=== PATIENT | female | born 1935 | race Caucasian/White ===

== ENCOUNTER 2019-10-18 22:13 | Inpatient (IN) | payer MEDICARE ==
[2019-10-18 23:07] LABS: #Basophils 0.1 thou/uL (0.0-0.2); #Eosinphils 0.1 thou/uL (0.0-0.7); #Lymphocytes 1.5 thou/uL (1.20-3.40); #Monocytes 0.5 thou/uL (0.11-0.59); #Neutrophils 3.6 thou/uL (1.40-6.50); %Basophils 1.1 % (0.0-1.0); %Eosinophils 1.8 % (0.0-10.0); %Lymphocytes 26.6 % (21.0-51.0); %Monocytes 8.4 % (0.0-10.0); Hemoglobin 12.8 g/dL (12.0-16.0); Mean Corpuscular Hemoglobin 31.2 pg (27.0-31.0); Mean Corpuscular Volume 94.5 fL (78.0-98.0); Mean Platelet Volume 7.8 fL (7.4-10.4); Platelet Count 180 thou/uL (130-400); White Blood Cell (WBC) Count 5.8 thou/uL (4.8-10.8)
--- NOTE | 2019-10-18 23:18 | RAD ---
XR Chest 1 View Portable HISTORY: Chest pain COMPARISON: None. FINDINGS: Heart size is within normal limits. There are atherosclerotic changes of the aorta. The otoniel gs show chronic change. Deformity to the right humerus is present. The bones are demineralized. IMPRESSION: Chronic lung change.
[2019-10-18 23:31] LABS: Bilirubin Negative (Negative); Blood, Urine Negative (Negative); Clarity Clear (Clear); Glucose, Urine (Dipstick) Normal (Negative); Leukocyte Negative Leu/uL (Negative); Nitrite Negative (Negative); Protein, Urine (Dipstick) 10 mg/dL (Neg-Trace)
[2019-10-18 23:36] LABS: ALT (SGPT) Less than 7 U/L (8-55); AST (SGOT) 13 U/L (5-34); Albumin 3.5 g/dL (3.4-4.8); Alkaline Phosphatase 80 U/L (40-110); Anion Gap 10 mmol/L (10-20); BUN (Urea Nitrogen) 24 mg/dL (9.8-20.1); Bilirubin, Total 0.4 mg/dL (0.2-1.2); Calc. Creatinine Clearance 0 mL/min (70-130); Calcium 8.9 mg/dL (7.8-10.44); Carbon Dioxide 31 mmol/L (23-31); Chloride 106 mmol/L (98-107); Estimated GFR-MDRD 42; Globulin 2.8 g/dL (2.4-3.5); Glucose 95 mg/dL (83-110); Potassium 4.8 mmol/L (3.5-5.1); Protein, Total 6.3 g/dL (6.0-8.3); Sodium 142 mmol/L (136-145)
--- NOTE | 2019-10-19 01:29 | PDOC.HHP ---
Hospitalist HPI - History of Present Illness History of Present Illness: chest pain at home delirium poor social support brother ekg trop neg tri social admit Hospitalist Results - Labs Result Diagrams: 10/18/19 22:59 10/18/19 22:59 Lab results: WBC 5.8 thou/uL (4.8-10.8) 10/18/19 22:59 Hgb 12.8 g/dL (12.0-16.0) 10/18/19 22:59 Hct 38.8 % (36.0-47.0) 10/18/19 22:59 MCV 94.5 fL (78.0-98.0) 10/18/19 22:59 Plt Count 180 thou/uL (130-400) 10/18/19 22:59 Neutrophils % 62.0 % (42.0-75.0) 10/18/19 22:59 Sodium 142 mmol/L (136-145) 10/18/19 22:59 Potassium 4.8 mmol/L (3.5-5.1) 10/18/19 22:59 Chloride 106 mmol/L (98-107) 10/18/19 22:59 Carbon Dioxide 31 mmol/L (23-31) 10/18/19 22:59 BUN 24 mg/dL (9.8-20.1) H 10/18/19 22:59 Creatinine 1.22 mg/dL (0.6-1.1) H 10/18/19 22:59 Glucose 95 mg/dL (83-110) 10/18/19 22:59 Calcium 8.9 mg/dL (7.8-10.44) 10/18/19 22:59 Total Bilirubin 0.4 mg/dL (0.2-1.2) 10/18/19 22:59 AST 13 U/L (5-34) 10/18/19 22:59 ALT Less than 7 U/L (8-55) L 10/18/19 22:59 Alkaline Phosphatase 80 U/L (40-110) 10/18/19 22:59 Troponin I Less than 0.010 ng/mL (< 0.028) 10/18/19 22:59 Serum Total Protein 6.3 g/dL (6.0-8.3) 10/18/19 22:59 Albumin 3.5 g/dL (3.4-4.8) 10/18/19 22:59 Urine Ketones Negative mg/dL (Negative) 10/18/19 23:17 Urine Blood Negative (Negative) 10/18/19 23:17 Urine Nitrite Negative (Negative) 10/18/19 23:17 Ur Leukocyte Esterase Negative Anders/uL (Negative) 10/18/19 23:17
[2019-10-19] MEDS ORDERED: Ondansetron PF 4 MG/2 ML Vial IVP PRN ×2 (04:28→12:41)
[2019-10-19] MEDS ORDERED: Ondansetron ODT 4 MG TAB SL PRN (04:28)
[2019-10-19] MEDS ORDERED: Lactated Ringer's 1,000 ML IV SCH (04:30)
[2019-10-19] MEDS ORDERED: Ibuprofen 200 MG TAB PO PRN (12:41)
[2019-10-19] MEDS ORDERED: Acetaminophen 500 MG TAB PO PRN (12:41)
[2019-10-19] MEDS ORDERED: hydrALAZINE 20 MG/ML VIAL SLOW IVP PRN (12:41)
[2019-10-19] MEDS ORDERED: Ondansetron ODT 4 MG TAB PO PRN (12:41)
[2019-10-19] MEDS ORDERED: Aspirin 81 mg Enteric Coated Tablet PO SCH (12:45)
[2019-10-19] MEDS: Sodium Chloride 0.9% 1,000 ML IV SCH (14:33)
--- NOTE | 2019-10-19 16:10 | ULT ---
EXAM: Carotid ultrasound HISTORY: Multiple falls and headache COMPARISON: None TECHNIQUE: Multiplanar grayscale and color Doppler images were obtained in a carotid ultrasound. Spec tral analysis of the Doppler waveforms were performed. FINDINGS: A small amount of plaque is visualized in both proximal internal carotid arteries.. No significant pl aque is seen in either common carotid artery. The Doppler waveforms are normal in the visualized vessels. Peak systolic velocity in the right internal carotid artery 71 cm/s. Peak systolic velocity in the right common carotid artery 32 cm/s. The right ICA/CCA ratio is 2.2. Peak systolic velocity in the left internal carotid artery 33 cm/s. Peak systolic velocity in the left common carotid artery 44 cm/s. The left ICA/CCA ratio is 0.8. Both vertebral arteries demonstrate antegrade flow without focal stenosis IMPRESSION: Moderate stenosis of 50-69% per the systolic to diastolic ratio in the low right internal carotid art rik.
[2019-10-19 16:45] LABS: Troponin I 0.013 ng/mL (< 0.028)
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
[2019-10-19] MEDS: Gabapentin 400 MG CAP PO SCH (20:08)
[2019-10-19] MEDS: Famotidine 20 MG TAB PO SCH (20:08)
[2019-10-19] MEDS: Carvedilol 25 MG TAB PO SCH (20:08)
[2019-10-19 20:28] LABS: Troponin I Less than 0.010 ng/mL (< 0.028)
[2019-10-19] MEDS ORDERED: FLU VACC TS2019-20(65YR UP)/PF 180 MCG/0.5 ML SYRINGE IM ONE (21:00)
[2019-10-19] MEDS ORDERED: Triamcinolone 0.025 % Cream 15GM TUBE TOP SCH (21:00)
[2019-10-19] MEDS ORDERED: Prevnar 13-Val Conj/PF 0.5 ML SYRINGE IM ONE (21:00)
[2019-10-19] MEDS: Triamcinolone 0.1% Cream 15 GM TUBE TOP SCH (21:46)
[2019-10-20] MEDS: Sodium Chloride 0.9% 1,000 ML IV SCH ×2 (03:22→15:23)
[2019-10-20] MEDS: Levothyroxine Sodium 25 MCG TAB PO SCH (06:07)
[2019-10-20] MEDS: Carvedilol 25 MG TAB PO SCH ×2 (08:04→19:54)
[2019-10-20] MEDS: Triamcinolone 0.1% Cream 15 GM TUBE TOP SCH ×2 (08:04→19:54)
[2019-10-20] MEDS: Aspirin 81 mg Enteric Coated Tablet PO SCH (08:04)
[2019-10-20] MEDS: Donepezil HCl 5 MG TAB PO SCH (09:45)
[2019-10-20] MEDS: Lorazepam 2 MG/ML VIAL SLOW IVP PRN ×2 (15:54→17:54)
--- NOTE | 2019-10-20 16:26 | PDOC.HOSPP ---
- Subjective Encounter Date: 10/20/19 Encounter Time: 16:20 Subjective: f/u for AMS, delirium, dehydration and falls. Nursing reports pt agitated and attempting to get out of bed. Ativan IV given x 1. Family at bedside. - Objective Vital Signs & Weight: Vital Signs (12 hours) Temp Pulse Resp BP Pulse Ox 10/20/19 08:00 94 L 10/20/19 07:41 97.8 F 96 18 165/96 H 94 L Weight Admit Weight 167 lb Weight 167 lb I&O: 10/19/19 10/20/19 10/21/19 06:59 06:59 06:59 Intake Total 10 1161 1705 Balance 10 1161 1705 Result Diagrams: 10/18/19 22:59 10/18/19 22:59 Additional Labs: Accuchecks 10/20/19 11:08 POC Glucose 151 H Laboratory Tests 10/18/19 10/20/19 22:59 07:43 Free T4 0.81 TSH 3rd Generation 10.8448 H Radiology Reviewed by me: Yes (Echo - EF 50-55%) Hospitalist ROS - Medication Medications: Active Medications Generic Name Dose Route Start Last Admin Trade Name Freq PRN Reason Stop Dose Admin Aspirin 81 mg 10/20/19 09:00 10/20/19 08:04 Ecotrin PO 81 mg DAILY AYANNA Administration Carvedilol 25 mg 10/19/19 21:00 10/20/19 08:04 Coreg PO 25 mg BID AYANNA Administration Donepezil HCl 5 mg 10/20/19 09:00 10/20/19 09:45 Aricept PO 5 mg DAILY AYANNA Administration Famotidine 20 mg 10/19/19 21:00 10/19/19 20:08 Pepcid PO 20 mg HS AYANNA Administration Gabapentin 400 mg 10/19/19 21:00 10/19/19 20:08 Neurontin PO 400 mg HS AYANNA Administration Sodium Chloride 1,000 mls @ 75 mls/hr 10/19/19 12:45 10/20/19 15:23 Normal Saline 0.9% IV 1,000 mls .[id number] AYANNA Administration Levothyroxine Sodium 25 mcg 10/20/19 06:00 10/20/19 06:07 Synthroid PO 25 mcg 0600 AYANNA Administration Lorazepam 1 mg 10/19/19 12:41 10/20/19 15:54 Ativan SLOW IVP 1 mg Q6H PRN Administration Anxiety/Agitation Triamcinolone Acetonide 0 gm 10/19/19 21:00 10/20/19 08:04 Kenalog 0.1% Cream TOP 1 applic BID AYANNA Administration - Exam General Appearance: awake alert Eye: PERRL, anicteric sclera ENT: normocephalic atraumatic, no oropharyngeal lesions Neck: supple, symmetric, no JVD, no thyromegaly Heart: no murmur, no gallops, no rubs, normal peripheral pulses, irregular Respiratory: CTAB, no wheezes, no rales, no ronchi, normal chest expansion Gastrointestinal: soft, non-tender, non-distended, normal bowel sounds, no palpable masses Extremities: no cyanosis, no clubbing, no edema Skin: normal turgor, no lesions Neurological: no new deficit Musculoskeletal: normal tone, normal strength Psychiatric: oriented to person Hosp A/P (1) Chest pain Code(s): R07.9 - CHEST PAIN, UNSPECIFIED Status: Acute Plan: Likely muskuloskeletal, supportive (2) Chronic atrial fibrillation Code(s): I48.20 - CHRONIC ATRIAL FIBRILLATION, UNSPECIFIED Status: Chronic Plan: Rate-controlled, no anticoagulation due to falls, Coreg 25mg BID (3) INGRIS (acute kidney injury) Code(s): N17.9 - ACUTE KIDNEY FAILURE, UNSPECIFIED Status: Acute Plan: Mild INGRIS, continue low-volume IVF's, avoid nephrotoxic meds (4) Delirium Code(s): R41.0 - DISORIENTATION, UNSPECIFIED Status: Acute Plan: Likely sundowning, Ativan IV prn, consider sitter/family for support (5) Dementia Code(s): F03.90 - UNSPECIFIED DEMENTIA WITHOUT BEHAVIORAL DISTURBANCE Status: Chronic Plan: Continue Aricept (6) Hypothyroid Code(s): E03.9 - HYPOTHYROIDISM, UNSPECIFIED Status: Chronic Plan: Continue Levothyroxine (7) Physical deconditioning Code(s): R53.81 - OTHER MALAISE Status: Chronic Plan: PT/OT for assessment, fall risk precautions - Plan plan discussed w/ family, PT/OT, social director, out of bed/ambulate, DVT proph w/SCDs Stable currently Continue Ativan 1mg IV q6h prn agitation Continue IVF's CM for SNF options Continue Coreg
[2019-10-20] MEDS: Famotidine 20 MG TAB PO SCH (19:54)
[2019-10-20] MEDS: Gabapentin 400 MG CAP PO SCH (19:54)
[2019-10-21] MEDS: Levothyroxine Sodium 25 MCG TAB PO SCH (05:41)
[2019-10-21] MEDS: Sodium Chloride 0.9% 1,000 ML IV SCH ×2 (05:41→20:39)
[2019-10-21] MEDS: Aspirin 81 mg Enteric Coated Tablet PO SCH (09:59)
[2019-10-21] MEDS: Donepezil HCl 5 MG TAB PO SCH (09:59)
[2019-10-21] MEDS: Carvedilol 25 MG TAB PO SCH ×2 (09:59→20:34)
[2019-10-21] MEDS: Triamcinolone 0.1% Cream 15 GM TUBE TOP SCH ×2 (10:00→20:38)
--- NOTE | 2019-10-21 11:54 | PDOC.HOSPP ---
- Subjective Encounter Date: 10/21/19 Encounter Time: 10:00 Subjective: patient seen on f/u for ams and chest pains, currently is oriented to person and place, denies any chest pain sob palpitation sob or diaphoresis, does refers some shoulder pain which is chronic according to daughter - Objective Vital Signs & Weight: Vital Signs (12 hours) Temp Pulse Resp BP Pulse Ox 10/21/19 08:00 98.3 F 88 16 171/91 H 97 Weight Admit Weight 167 lb Weight 167 lb I&O: 10/20/19 10/21/19 10/22/19 06:59 06:59 06:59 Intake Total 1161 1705 Balance 1161 1705 Result Diagrams: 10/18/19 22:59 10/18/19 22:59 Hospitalist ROS - Review of Systems All other systems reviewed; all pertinent +/- noted in HPI/Subj - Medication Medications: Active Medications Generic Name Dose Route Start Last Admin Trade Name Freq PRN Reason Stop Dose Admin Aspirin 81 mg 10/20/19 09:00 10/21/19 09:59 Ecotrin PO 81 mg DAILY AYANNA Administration Carvedilol 25 mg 10/19/19 21:00 10/21/19 09:59 Coreg PO 25 mg BID AYANNA Administration Donepezil HCl 5 mg 10/20/19 09:00 10/21/19 09:59 Aricept PO 5 mg DAILY AYANNA Administration Famotidine 20 mg 10/19/19 21:00 10/20/19 19:54 Pepcid PO 20 mg HS AYANNA Administration Gabapentin 400 mg 10/19/19 21:00 10/20/19 19:54 Neurontin PO 400 mg HS AYANNA Administration Sodium Chloride 1,000 mls @ 75 mls/hr 10/19/19 12:45 10/21/19 05:41 Normal Saline 0.9% IV 1,000 mls .[id number] AYANNA Administration Levothyroxine Sodium 25 mcg 10/20/19 06:00 10/21/19 05:41 Synthroid PO 25 mcg 0600 AYANNA Administration Lorazepam 1 mg 10/19/19 12:41 10/20/19 17:54 Ativan SLOW IVP 1 mg Q6H PRN Administration Anxiety/Agitation Triamcinolone Acetonide 0 gm 10/19/19 21:00 10/21/19 10:00 Kenalog 0.1% Cream TOP 1 applic BID AYANNA Administration - Exam General Appearance: NAD, awake alert Eye: PERRL, anicteric sclera ENT: normocephalic atraumatic, no oropharyngeal lesions Neck: supple, symmetric, no JVD Heart: RRR, no murmur, no gallops Respiratory: CTAB, no wheezes, no rales, no ronchi Gastrointestinal: soft, non-tender, non-distended, normal bowel sounds Extremities: no cyanosis, no clubbing Skin: normal turgor Neurological: cranial nerve grossly intact Musculoskeletal: normal tone, normal strength Psychiatric: normal affect, normal behavior, oriented to person Hosp A/P (1) Delirium Code(s): R41.0 - DISORIENTATION, UNSPECIFIED Status: Acute (2) INGRIS (acute kidney injury) Code(s): N17.9 - ACUTE KIDNEY FAILURE, UNSPECIFIED Status: Acute (3) Chest pain Code(s): R07.9 - CHEST PAIN, UNSPECIFIED Status: Acute (4) Chronic atrial fibrillation Code(s): I48.20 - CHRONIC ATRIAL FIBRILLATION, UNSPECIFIED Status: Chronic (5) Dementia Code(s): F03.90 - UNSPECIFIED DEMENTIA WITHOUT BEHAVIORAL DISTURBANCE Status: Chronic (6) Hypothyroid Code(s): E03.9 - HYPOTHYROIDISM, UNSPECIFIED Status: Chronic (7) Physical deconditioning Code(s): R53.81 - OTHER MALAISE Status: Chronic - Plan -awaiting home placement -cm consulted -continue rate control for afib -d/c ivfs -d/c ativan, daughter refers agitation gets worse, could use haldol if necessary -daughter refers patient is coughing when she eats, will consult speech for evaluation
[2019-10-21] MEDS: Gabapentin 400 MG CAP PO SCH (20:34)
[2019-10-21] MEDS: Famotidine 20 MG TAB PO SCH (20:34)
[2019-10-22] MEDS ORDERED: Lorazepam 2 MG/ML VIAL SLOW IVP PRN (04:30)
[2019-10-22] MEDS: Levothyroxine Sodium 25 MCG TAB PO SCH (05:36)
[2019-10-22] MEDS ORDERED: Haloperidol Lactate 5 MG/ML VIAL SLOW IVP PRN (08:56)
[2019-10-22] MEDS: Donepezil HCl 5 MG TAB PO SCH (09:05)
[2019-10-22] MEDS: Carvedilol 25 MG TAB PO SCH ×2 (09:05→20:08)
[2019-10-22] MEDS: Triamcinolone 0.1% Cream 15 GM TUBE TOP SCH ×2 (09:05→20:09)
[2019-10-22] MEDS: Aspirin 81 mg Enteric Coated Tablet PO SCH (09:05)
--- NOTE | 2019-10-22 14:33 | PDOC.HOSPP ---
- Subjective Encounter Date: 10/22/19 Encounter Time: 14:15 Subjective: f/u for delirium/dementia and deconditioning. Some combativeness per nursing. Trial of Haldol for agitation. - Objective Vital Signs & Weight: Vital Signs (12 hours) Temp Pulse Resp BP Pulse Ox 10/22/19 08:00 97.7 F 78 16 138/88 97 Weight Admit Weight 167 lb Weight 167 lb I&O: 10/21/19 10/22/19 10/23/19 06:59 06:59 06:59 Intake Total 1705 500 480 Output Total 650 Balance 1705 -150 480 Result Diagrams: 10/18/19 22:59 10/18/19 22:59 Additional Labs: Laboratory Tests 10/18/19 10/20/19 22:59 07:43 Free T4 0.81 TSH 3rd Generation 10.8448 H Hospitalist ROS - Medication Medications: Active Medications Generic Name Dose Route Start Last Admin Trade Name Freq PRN Reason Stop Dose Admin Aspirin 81 mg 10/20/19 09:00 10/22/19 09:05 Ecotrin PO 81 mg DAILY AYANNA Administration Carvedilol 25 mg 10/19/19 21:00 10/22/19 09:05 Coreg PO 25 mg BID AYANNA Administration Donepezil HCl 5 mg 10/20/19 09:00 10/22/19 09:05 Aricept PO 5 mg DAILY AYANNA Administration Famotidine 20 mg 10/19/19 21:00 10/21/19 20:34 Pepcid PO 20 mg HS AYANNA Administration Gabapentin 400 mg 10/19/19 21:00 10/21/19 20:34 Neurontin PO 400 mg HS AYANNA Administration Levothyroxine Sodium 25 mcg 10/20/19 06:00 10/22/19 05:36 Synthroid PO 25 mcg 0600 AYANNA Administration Triamcinolone Acetonide 0 gm 10/19/19 21:00 10/22/19 09:05 Kenalog 0.1% Cream TOP 1 applic BID AYANNA Administration - Exam General Appearance: NAD, awake alert Eye: PERRL, anicteric sclera ENT: normocephalic atraumatic, no oropharyngeal lesions Neck: supple, symmetric, no JVD, no thyromegaly Heart: no gallops, no rubs, normal peripheral pulses, irregular Respiratory: no wheezes, no ronchi Respiratory - other findings: few basilar rales Gastrointestinal: soft, non-tender, non-distended, normal bowel sounds, no palpable masses Extremities: no cyanosis, no clubbing, no edema Skin: normal turgor, no lesions Neurological: cranial nerve grossly intact, no new deficit Musculoskeletal: generalized weakness Psychiatric: oriented to person Hosp A/P (1) Chest pain Code(s): R07.9 - CHEST PAIN, UNSPECIFIED Status: Acute Plan: Resolved (2) Chronic atrial fibrillation Code(s): I48.20 - CHRONIC ATRIAL FIBRILLATION, UNSPECIFIED Status: Chronic Plan: Rate-controlled, continue Coreg (3) INGRIS (acute kidney injury) Code(s): N17.9 - ACUTE KIDNEY FAILURE, UNSPECIFIED Status: Acute Plan: Resolved (4) Delirium Code(s): R41.0 - DISORIENTATION, UNSPECIFIED Status: Acute Plan: Persistent, trial Haldol (5) Dementia Code(s): F03.90 - UNSPECIFIED DEMENTIA WITHOUT BEHAVIORAL DISTURBANCE Status: Chronic Plan: Family support, Aricept (6) Hypothyroid Code(s): E03.9 - HYPOTHYROIDISM, UNSPECIFIED Status: Chronic (7) Physical deconditioning Code(s): R53.81 - OTHER MALAISE Status: Chronic Plan: RW with PT - Plan plan discussed w/ family, PT/OT, rn social services, out of bed/ambulate, DVT proph w/SCDs Stable currently Trial Haldol 1mg IV q4h prn agitation Saline lock IVF's CM for SNF options Continue Coreg
[2019-10-22] MEDS: Gabapentin 400 MG CAP PO SCH (20:08)
[2019-10-22] MEDS: Famotidine 20 MG TAB PO SCH (20:08)
[2019-10-23] MEDS: Levothyroxine Sodium 25 MCG TAB PO SCH (05:35)
[2019-10-23] MEDS: Aspirin 81 mg Enteric Coated Tablet PO SCH (09:38)
[2019-10-23] MEDS: Triamcinolone 0.1% Cream 15 GM TUBE TOP SCH ×2 (09:38→20:26)
[2019-10-23] MEDS: Donepezil HCl 5 MG TAB PO SCH (09:38)
[2019-10-23] MEDS: Carvedilol 25 MG TAB PO SCH ×2 (09:38→20:24)
--- NOTE | 2019-10-23 14:36 | PDOC.HOSPP ---
- Subjective Encounter Date: 10/23/19 Encounter Time: 14:05 Subjective: f/u for delirium/dementia receiving low-dose Haldol. Family reports more alert, calm and eating very well. - Objective Vital Signs & Weight: Vital Signs (12 hours) Temp Pulse Resp BP Pulse Ox 10/23/19 08:00 98.3 F 87 18 143/77 H 96 Weight Admit Weight 167 lb Weight 167 lb I&O: 10/22/19 10/23/19 10/24/19 06:59 06:59 06:59 Intake Total 500 580 Output Total 650 Balance -150 580 Result Diagrams: 10/18/19 22:59 10/18/19 22:59 Additional Labs: Laboratory Tests 10/18/19 10/20/19 22:59 07:43 Free T4 0.81 TSH 3rd Generation 10.8448 H Hospitalist ROS - Medication Medications: Active Medications Generic Name Dose Route Start Last Admin Trade Name Freq PRN Reason Stop Dose Admin Aspirin 81 mg 10/20/19 09:00 10/23/19 09:38 Ecotrin PO 81 mg DAILY AYANNA Administration Carvedilol 25 mg 10/19/19 21:00 10/23/19 09:38 Coreg PO 25 mg BID AYANNA Administration Donepezil HCl 5 mg 10/20/19 09:00 10/23/19 09:38 Aricept PO 5 mg DAILY AYANNA Administration Famotidine 20 mg 10/19/19 21:00 10/22/19 20:08 Pepcid PO 20 mg HS AYANNA Administration Gabapentin 400 mg 10/19/19 21:00 10/22/19 20:08 Neurontin PO 400 mg HS AYANNA Administration Levothyroxine Sodium 25 mcg 10/20/19 06:00 10/23/19 05:35 Synthroid PO 25 mcg 0600 AYANNA Administration Triamcinolone Acetonide 0 gm 10/19/19 21:00 10/23/19 09:38 Kenalog 0.1% Cream TOP 1 applic BID AYANNA Administration - Exam General Appearance: NAD, awake alert General - other findings: smiling Eye: PERRL, anicteric sclera ENT: normocephalic atraumatic, no oropharyngeal lesions Neck: supple, symmetric, no JVD, no thyromegaly Heart: RRR, no murmur, no gallops, no rubs, normal peripheral pulses Respiratory: CTAB, no wheezes, no rales, no ronchi, normal chest expansion Gastrointestinal: soft, non-tender, non-distended, normal bowel sounds Extremities: no cyanosis, no clubbing, no edema Skin: normal turgor, no lesions Neurological: cranial nerve grossly intact, no new deficit Musculoskeletal: normal tone, generalized weakness Psychiatric: oriented to person, oriented to place Hosp A/P (1) Delirium Code(s): R41.0 - DISORIENTATION, UNSPECIFIED Status: Acute Plan: Improved, continue low-dose Haldol (2) Dementia Code(s): F03.90 - UNSPECIFIED DEMENTIA WITHOUT BEHAVIORAL DISTURBANCE Status: Chronic Plan: Continue Aricept 5mg daily (3) Chronic atrial fibrillation Code(s): I48.20 - CHRONIC ATRIAL FIBRILLATION, UNSPECIFIED Status: Chronic Plan: Rate-controlled, ASA (4) INGRIS (acute kidney injury) Code(s): N17.9 - ACUTE KIDNEY FAILURE, UNSPECIFIED Status: Acute Plan: Resolved (5) Hypothyroid Code(s): E03.9 - HYPOTHYROIDISM, UNSPECIFIED Status: Chronic Plan: Continue Levothyroxine daily (6) Physical deconditioning Code(s): R53.81 - OTHER MALAISE Status: Chronic Plan: PT/OT for mobilization - Plan plan discussed w/ family, PT/OT, social professionals, out of bed/ambulate, DVT proph w/SCDs Stable currently Trial Haldol 1mg IV q4h prn agitation Saline lock IVF's CM for SNF options Family considering returning home Continue Coreg Continue ASA daily
[2019-10-23] MEDS: Lidocaine 5% Patch TD SCH (16:54)
[2019-10-23] MEDS: Gabapentin 400 MG CAP PO SCH (20:24)
[2019-10-23] MEDS: Famotidine 20 MG TAB PO SCH (20:24)
[2019-10-24] MEDS: Lidocaine Patch Removal TOP SCH (04:30)
[2019-10-24] MEDS: Levothyroxine Sodium 25 MCG TAB PO SCH (05:34)
[2019-10-24] MEDS: Carvedilol 25 MG TAB PO SCH ×2 (09:06→20:14)
[2019-10-24] MEDS: Donepezil HCl 5 MG TAB PO SCH (09:06)
[2019-10-24] MEDS: Aspirin 81 mg Enteric Coated Tablet PO SCH (09:06)
[2019-10-24] MEDS: Triamcinolone 0.1% Cream 15 GM TUBE TOP SCH ×2 (09:07→20:13)
--- NOTE | 2019-10-24 13:49 | PDOC.HOSPP ---
- Subjective Encounter Date: 10/24/19 Encounter Time: 13:40 Subjective: f/u for dementia/delirium, deconditioning. Overall feels ok but no new events reported. - Objective Vital Signs & Weight: Vital Signs (12 hours) Temp Pulse Resp BP Pulse Ox 10/24/19 08:20 97.7 F 83 16 158/76 H 97 Weight Admit Weight 167 lb Weight 167 lb I&O: 10/23/19 10/24/19 10/25/19 06:59 06:59 06:59 Intake Total 580 930 Balance 580 930 Result Diagrams: 10/18/19 22:59 10/18/19 22:59 Additional Labs: Laboratory Tests 10/18/19 10/20/19 22:59 07:43 Free T4 0.81 TSH 3rd Generation [id number] H Hospitalist ROS - Medication Medications: Active Medications Generic Name Dose Route Start Last Admin Trade Name Freq PRN Reason Stop Dose Admin Aspirin 81 mg 10/20/19 09:00 10/24/19 09:06 Ecotrin PO 81 mg DAILY AYANNA Administration Carvedilol 25 mg 10/19/19 21:00 10/24/19 09:06 Coreg PO 25 mg BID AYANNA Administration Donepezil HCl 5 mg 10/20/19 09:00 10/24/19 09:06 Aricept PO 5 mg DAILY AYANNA Administration Famotidine 20 mg 10/19/19 21:00 10/23/19 20:24 Pepcid PO 20 mg HS AYANNA Administration Gabapentin 400 mg 10/19/19 21:00 10/23/19 20:24 Neurontin PO 400 mg HS AYANNA Administration Levothyroxine Sodium 25 mcg 10/20/19 06:00 10/24/19 05:34 Synthroid PO 25 mcg 0600 AYANNA Administration Lidocaine 2 patch 10/23/19 15:00 10/23/19 16:54 Lidoderm 5% Patch TD 2 patch 1500 AYANNA Administration Miscellaneous Medication 1 each 10/24/19 03:00 10/24/19 04:30 Lidocaine Patch Removal TOP 1 each 0300 AYANNA Administration Triamcinolone Acetonide 0 gm 10/19/19 21:00 10/24/19 09:07 Kenalog 0.1% Cream TOP 1 applic BID AYANNA Administration - Exam General Appearance: NAD, awake alert Eye: PERRL, anicteric sclera ENT: normocephalic atraumatic, no oropharyngeal lesions Neck: supple, symmetric, no JVD, no thyromegaly Heart: no murmur, no gallops, no rubs, normal peripheral pulses, irregular Respiratory: CTAB, no wheezes, no rales, no ronchi, normal chest expansion Gastrointestinal: soft, non-tender, non-distended, normal bowel sounds Extremities: no cyanosis, no clubbing, no edema Skin: normal turgor, no lesions Neurological: cranial nerve grossly intact, no new deficit Musculoskeletal: normal tone, generalized weakness Psychiatric: normal affect, oriented to person, oriented to place Hosp A/P (1) Delirium Code(s): R41.0 - DISORIENTATION, UNSPECIFIED Status: Acute Plan: Improved and resolving (2) Dementia Code(s): F03.90 - UNSPECIFIED DEMENTIA WITHOUT BEHAVIORAL DISTURBANCE Status: Chronic Plan: Continue Aricept (3) Chronic atrial fibrillation Code(s): I48.20 - CHRONIC ATRIAL FIBRILLATION, UNSPECIFIED Status: Chronic Plan: Rate-controlled, ASA (4) INGRIS (acute kidney injury) Code(s): N17.9 - ACUTE KIDNEY FAILURE, UNSPECIFIED Status: Acute (5) Hypothyroid Code(s): E03.9 - HYPOTHYROIDISM, UNSPECIFIED Status: Chronic (6) Physical deconditioning Code(s): R53.81 - OTHER MALAISE Status: Chronic - Plan plan discussed w/ family, PT/OT, geriatric social worker, out of bed/ambulate, DVT proph w/SCDs Stable currently Trial Haldol 1mg IV q4h prn agitation Saline lock IVF's CM for SNF options Family considering returning home Continue Coreg Continue ASA daily Home in am 10/25/19
[2019-10-24] MEDS: Lidocaine 5% Patch TD SCH (15:19)
[2019-10-24] MEDS: Gabapentin 400 MG CAP PO SCH (20:14)
[2019-10-24] MEDS: Famotidine 20 MG TAB PO SCH (20:14)
[2019-10-25] MEDS: Lidocaine Patch Removal TOP SCH (04:21)
[2019-10-25] MEDS: Levothyroxine Sodium 25 MCG TAB PO SCH (06:26)
[2019-10-25] MEDS: Carvedilol 25 MG TAB PO SCH ×2 (08:13→20:27)
[2019-10-25] MEDS: Aspirin 81 mg Enteric Coated Tablet PO SCH (08:14)
[2019-10-25] MEDS: Donepezil HCl 5 MG TAB PO SCH (08:50)
[2019-10-25] MEDS: Triamcinolone 0.1% Cream 15 GM TUBE TOP SCH ×2 (10:49→20:25)
[2019-10-25] MEDS: Lidocaine 5% Patch TD SCH (15:14)
[2019-10-25] MEDS: Gabapentin 400 MG CAP PO SCH (20:27)
[2019-10-25] MEDS: Famotidine 20 MG TAB PO SCH (20:27)
[2019-10-25] MEDS: Trospium 20 MG TAB PO SCH (20:28)
--- NOTE | 2019-10-25 20:52 | PDOC.HOSPP ---
- Subjective Encounter Date: 10/25/19 Encounter Time: 17:00 Subjective: f/u for dementia/delirium on current Aricept. No new events reported. Apparently family now unable to take pt home for care. - Objective Vital Signs & Weight: Vital Signs (12 hours) Temp Pulse Resp BP Pulse Ox 10/25/19 19:54 98.0 F 76 18 140/67 98 Weight Admit Weight 167 lb Weight 167 lb I&O: 10/24/19 10/25/19 10/26/19 06:59 06:59 06:59 Intake Total 930 1200 990 Balance 930 1200 990 Result Diagrams: 10/18/19 22:59 10/18/19 22:59 Additional Labs: Laboratory Tests 10/18/19 10/20/19 22:59 07:43 Free T4 0.81 TSH 3rd Generation 10.8448 H Hospitalist ROS - Medication Medications: Active Medications Generic Name Dose Route Start Last Admin Trade Name Freq PRN Reason Stop Dose Admin Aspirin 81 mg 10/20/19 09:00 10/25/19 08:14 Ecotrin PO 81 mg DAILY AYANNA Administration Carvedilol 25 mg 10/19/19 21:00 10/25/19 20:27 Coreg PO 25 mg BID AYANNA Administration Donepezil HCl 5 mg 10/20/19 09:00 10/25/19 08:50 Aricept PO 5 mg DAILY AYANNA Administration Famotidine 20 mg 10/19/19 21:00 10/25/19 20:27 Pepcid PO 20 mg HS AYANNA Administration Gabapentin 400 mg 10/19/19 21:00 10/25/19 20:27 Neurontin PO 400 mg HS AYANNA Administration Levothyroxine Sodium 25 mcg 10/20/19 06:00 10/25/19 06:26 Synthroid PO 25 mcg 0600 AYANNA Administration Lidocaine 2 patch 10/23/19 15:00 10/25/19 15:14 Lidoderm 5% Patch TD 2 patch 1500 AYANNA Administration Miscellaneous Medication 1 each 10/24/19 03:00 10/25/19 04:21 Lidocaine Patch Removal TOP 1 each 0300 AYANNA Administration Sodium Chloride 10 ml 10/25/19 09:00 10/25/19 20:28 Flush - Normal Saline IVF Not Given Q12HR AYANNA Triamcinolone Acetonide 0 gm 10/19/19 21:00 10/25/19 20:25 Kenalog 0.1% Cream TOP 1 applic BID AYANNA Administration Trospium 20 mg 10/25/19 21:00 10/25/19 20:28 Trospium PO 20 mg BID AYANNA Administration - Exam General Appearance: NAD, awake alert Eye: PERRL, anicteric sclera ENT: normocephalic atraumatic, no oropharyngeal lesions Neck: supple, symmetric, no JVD, no thyromegaly Heart: no gallops, no rubs, normal peripheral pulses, irregular Respiratory: CTAB, no wheezes, no rales, no ronchi, normal chest expansion Gastrointestinal: soft, non-tender, non-distended, normal bowel sounds Extremities: no cyanosis, no clubbing, no edema Skin: normal turgor, no lesions Neurological: cranial nerve grossly intact, no new deficit Musculoskeletal: normal tone, generalized weakness Psychiatric: oriented to person, oriented to place Hosp A/P (1) Delirium Code(s): R41.0 - DISORIENTATION, UNSPECIFIED Status: Acute Plan: Resolved, continue supportive mgmt (2) Dementia Code(s): F03.90 - UNSPECIFIED DEMENTIA WITHOUT BEHAVIORAL DISTURBANCE Status: Chronic Plan: Continue Aricept (3) Chronic atrial fibrillation Code(s): I48.20 - CHRONIC ATRIAL FIBRILLATION, UNSPECIFIED Status: Chronic Plan: ASA, Coreg (4) INGRIS (acute kidney injury) Code(s): N17.9 - ACUTE KIDNEY FAILURE, UNSPECIFIED Status: Acute Plan: Resolved (5) Hypothyroid Code(s): E03.9 - HYPOTHYROIDISM, UNSPECIFIED Status: Chronic (6) Physical deconditioning Code(s): R53.81 - OTHER MALAISE Status: Chronic Plan: PT for mobilization - Plan plan discussed w/ family, PT/OT, high school social studies teacher, out of bed/ambulate, DVT proph w/SCDs Stable currently Haldol 0.5mg po q6h prn agitation Saline lock IVF's CM for SNF options Family considering returning home but now have decided against it Continue Coreg Continue ASA/Coreg Care delay on family from 10/23/19 as patient is medically stable for discharge from that date
[2019-10-26] MEDS: Lidocaine Patch Removal TOP SCH (04:05)
[2019-10-26] MEDS: Levothyroxine Sodium 25 MCG TAB PO SCH (06:41)
[2019-10-26] MEDS: Aspirin 81 mg Enteric Coated Tablet PO SCH (08:59)
[2019-10-26] MEDS: Carvedilol 25 MG TAB PO SCH ×2 (08:59→20:31)
[2019-10-26] MEDS: Trospium 20 MG TAB PO SCH ×2 (09:00→20:31)
[2019-10-26] MEDS: Donepezil HCl 5 MG TAB PO SCH (09:00)
[2019-10-26] MEDS: Triamcinolone 0.1% Cream 15 GM TUBE TOP SCH ×2 (09:01→20:31)
[2019-10-26] MEDS: Lidocaine 5% Patch TD SCH (16:54)
--- NOTE | 2019-10-26 17:23 | PDOC.HOSPP ---
- Subjective Encounter Date: 10/26/19 Encounter Time: 16:30 Subjective: f/u for deconditioning, delirium/dementia with disposition pending. No new events reported. - Objective Vital Signs & Weight: Vital Signs (12 hours) Temp Pulse Resp BP Pulse Ox 10/26/19 08:00 97.6 F 92 16 146/84 H 96 Weight Admit Weight 167 lb Weight 167 lb I&O: 10/25/19 10/26/19 10/27/19 06:59 06:59 06:59 Intake Total 1200 990 Balance 1200 990 Result Diagrams: 10/18/19 22:59 10/18/19 22:59 Additional Labs: Laboratory Tests 10/18/19 10/20/19 22:59 07:43 Free T4 0.81 TSH 3rd Generation 10.8448 H Hospitalist ROS - Medication Medications: Active Medications Generic Name Dose Route Start Last Admin Trade Name Freq PRN Reason Stop Dose Admin Aspirin 81 mg 10/20/19 09:00 10/26/19 08:59 Ecotrin PO 81 mg DAILY AYANNA Administration Carvedilol 25 mg 10/19/19 21:00 10/26/19 08:59 Coreg PO 25 mg BID AYANNA Administration Donepezil HCl 5 mg 10/20/19 09:00 10/26/19 09:00 Aricept PO 5 mg DAILY AYANNA Administration Famotidine 20 mg 10/19/19 21:00 10/25/19 20:27 Pepcid PO 20 mg HS AYANNA Administration Gabapentin 400 mg 10/19/19 21:00 10/25/19 20:27 Neurontin PO 400 mg HS AYANNA Administration Levothyroxine Sodium 25 mcg 10/20/19 06:00 10/26/19 06:41 Synthroid PO 25 mcg 0600 AYANNA Administration Lidocaine 2 patch 10/23/19 15:00 10/26/19 16:54 Lidoderm 5% Patch TD 2 patch 1500 AYANNA Administration Miscellaneous Medication 1 each 10/24/19 03:00 10/26/19 04:05 Lidocaine Patch Removal TOP 1 each 0300 AYANNA Administration Sodium Chloride 10 ml 10/25/19 09:00 10/26/19 11:03 Flush - Normal Saline IVF Not Given Q12HR AYANNA Triamcinolone Acetonide 0 gm 10/19/19 21:00 10/26/19 09:01 Kenalog 0.1% Cream TOP 1 applic BID AYANNA Administration Trospium 20 mg 10/25/19 21:00 10/26/19 09:00 Trospium PO 20 mg BID AYANNA Administration - Exam General Appearance: NAD, awake alert Eye: PERRL, anicteric sclera ENT: normocephalic atraumatic, no oropharyngeal lesions Neck: supple, symmetric, no JVD, no thyromegaly Heart: no gallops, no rubs, normal peripheral pulses, irregular Respiratory: CTAB, no wheezes, no rales, no ronchi, normal chest expansion Gastrointestinal: soft, non-tender, non-distended, normal bowel sounds Extremities: no cyanosis, no clubbing, no edema Skin: normal turgor, no lesions Neurological: cranial nerve grossly intact, no new deficit Musculoskeletal: normal tone, generalized weakness Psychiatric: normal affect, oriented to person Hosp A/P (1) Delirium Code(s): R41.0 - DISORIENTATION, UNSPECIFIED Status: Acute Plan: Improved, continue Haldol PRN, supportive care (2) Dementia Code(s): F03.90 - UNSPECIFIED DEMENTIA WITHOUT BEHAVIORAL DISTURBANCE Status: Chronic Plan: Continue Aricept (3) Chronic atrial fibrillation Code(s): I48.20 - CHRONIC ATRIAL FIBRILLATION, UNSPECIFIED Status: Chronic Plan: Continue Coreg/ASA (4) INGRIS (acute kidney injury) Code(s): N17.9 - ACUTE KIDNEY FAILURE, UNSPECIFIED Status: Acute (5) Hypothyroid Code(s): E03.9 - HYPOTHYROIDISM, UNSPECIFIED Status: Chronic (6) Physical deconditioning Code(s): R53.81 - OTHER MALAISE Status: Chronic - Plan PT/OT, social work associate, out of bed/ambulate, DVT proph w/SCDs Stable currently Haldol 0.5mg po q6h prn agitation Saline lock IVF's CM for SNF options Family considering returning home but now have decided against it Continue Coreg Continue ASA/Coreg Care delay on family from 10/23/19 as patient is medically stable for discharge from that date
[2019-10-26] MEDS: Famotidine 20 MG TAB PO SCH (20:31)
[2019-10-26] MEDS: Gabapentin 400 MG CAP PO SCH (20:31)
[2019-10-27] MEDS: Lidocaine Patch Removal TOP SCH (04:57)
[2019-10-27] MEDS: Levothyroxine Sodium 25 MCG TAB PO SCH (05:35)
[2019-10-27] MEDS: Carvedilol 25 MG TAB PO SCH ×2 (08:56→21:16)
[2019-10-27] MEDS: Trospium 20 MG TAB PO SCH ×2 (08:57→21:16)
[2019-10-27] MEDS: Aspirin 81 mg Enteric Coated Tablet PO SCH (08:57)
[2019-10-27] MEDS: Donepezil HCl 5 MG TAB PO SCH (08:57)
[2019-10-27] MEDS: Triamcinolone 0.1% Cream 15 GM TUBE TOP SCH ×2 (09:00→21:19)
[2019-10-27 14:52] VITALS: BMI 29.5
[2019-10-27] MEDS: Lidocaine 5% Patch TD SCH (16:23)
--- NOTE | 2019-10-27 18:52 | PDOC.HOSPP ---
- Subjective Encounter Date: 10/27/19 Encounter Time: 15:00 Subjective: f/u for delirium/dementia and deconditioning with falls. No new events reported per nursing. - Objective Vital Signs & Weight: Vital Signs (12 hours) Temp Pulse Resp BP Pulse Ox 10/27/19 08:00 96 10/27/19 07:39 97.8 F 87 18 143/94 H 96 Weight Admit Weight 167 lb Weight 167 lb I&O: 10/26/19 10/27/19 10/28/19 06:59 06:59 06:59 Intake Total 990 600 Balance 990 600 Result Diagrams: 10/18/19 22:59 10/18/19 22:59 Hospitalist ROS - Medication Medications: Active Medications Generic Name Dose Route Start Last Admin Trade Name Freq PRN Reason Stop Dose Admin Aspirin 81 mg 10/20/19 09:00 10/27/19 08:57 Ecotrin PO 81 mg DAILY AYANNA Administration Carvedilol 25 mg 10/19/19 21:00 10/27/19 08:56 Coreg PO 25 mg BID AYANNA Administration Donepezil HCl 5 mg 10/20/19 09:00 10/27/19 08:57 Aricept PO 5 mg DAILY AYANNA Administration Famotidine 20 mg 10/19/19 21:00 10/26/19 20:31 Pepcid PO 20 mg HS AYANNA Administration Gabapentin 400 mg 10/19/19 21:00 10/26/19 20:31 Neurontin PO 400 mg HS AYANNA Administration Levothyroxine Sodium 25 mcg 10/20/19 06:00 10/27/19 05:35 Synthroid PO 25 mcg 0600 AYANNA Administration Lidocaine 2 patch 10/23/19 15:00 10/27/19 16:23 Lidoderm 5% Patch TD 2 patch 1500 AYANNA Administration Miscellaneous Medication 1 each 10/24/19 03:00 10/27/19 04:57 Lidocaine Patch Removal TOP Not Given 0300 AYANNA Sodium Chloride 10 ml 10/25/19 09:00 10/27/19 08:57 Flush - Normal Saline IVF 10 ml Q12HR AYANNA Administration Triamcinolone Acetonide 0 gm 10/19/19 21:00 10/27/19 09:00 Kenalog 0.1% Cream TOP 1 applic BID AYANNA Administration Trospium 20 mg 10/25/19 21:00 10/27/19 08:57 Trospium PO 20 mg BID AYANNA Administration - Exam General Appearance: NAD, awake alert Eye: PERRL, anicteric sclera ENT: normocephalic atraumatic, no oropharyngeal lesions Neck: supple, symmetric, no JVD, no thyromegaly Heart: no gallops, no rubs, normal peripheral pulses, irregular Respiratory: CTAB, no wheezes, no rales, no ronchi, normal chest expansion Gastrointestinal: soft, non-tender, non-distended, normal bowel sounds Extremities: no cyanosis, no clubbing, no edema Skin: normal turgor, no lesions Neurological: cranial nerve grossly intact, no new deficit Musculoskeletal: normal tone, generalized weakness Psychiatric: oriented to person Hosp A/P (1) Delirium Code(s): R41.0 - DISORIENTATION, UNSPECIFIED Status: Acute Plan: Improved with supportive mgmt, Haldol PRN (2) Dementia Code(s): F03.90 - UNSPECIFIED DEMENTIA WITHOUT BEHAVIORAL DISTURBANCE Status: Chronic Plan: Continue Aricept (3) Chronic atrial fibrillation Code(s): I48.20 - CHRONIC ATRIAL FIBRILLATION, UNSPECIFIED Status: Chronic Plan: Continue ASA/Coreg, no anticoagulation due to recurrent falls (4) INGRIS (acute kidney injury) Code(s): N17.9 - ACUTE KIDNEY FAILURE, UNSPECIFIED Status: Acute (5) Hypothyroid Code(s): E03.9 - HYPOTHYROIDISM, UNSPECIFIED Status: Chronic (6) Physical deconditioning Code(s): R53.81 - OTHER MALAISE Status: Chronic Plan: PT/OT for mobilization - Plan PT/OT, social worker masters, out of bed/ambulate, DVT proph w/SCDs Stable currently Haldol 0.5mg po q6h prn agitation Saline lock IVF's CM for SNF options Family considering returning home but now have decided against it Continue ASA/Coreg Care delay on family from 10/23/19 as patient is medically stable for discharge from that date but no decision on disposition
[2019-10-27] MEDS: Gabapentin 400 MG CAP PO SCH (21:16)
[2019-10-27] MEDS: Famotidine 20 MG TAB PO SCH (21:16)
[2019-10-28] MEDS: Levothyroxine Sodium 25 MCG TAB PO SCH (06:27)
[2019-10-28] MEDS: Lidocaine Patch Removal TOP SCH (06:27)
[2019-10-28] MEDS: Carvedilol 25 MG TAB PO SCH (09:03)
[2019-10-28] MEDS: Aspirin 81 mg Enteric Coated Tablet PO SCH (09:03)
[2019-10-28] MEDS: Triamcinolone 0.1% Cream 15 GM TUBE TOP SCH (09:03)
[2019-10-28] MEDS: Donepezil HCl 5 MG TAB PO SCH (09:03)
[2019-10-28] MEDS: Trospium 20 MG TAB PO SCH (09:03)
[2019-10-28 11:58] VITALS: BP 139/84; TEMP 97.7
--- NOTE | 2019-10-28 12:10 | DIS ---
DATE OF ADMISSION: 10/19/2019 DATE OF DISCHARGE: 10/28/2019 DISCHARGE DIAGNOSES: 1. Delirium multifactorial, improved. 2. Dementia, likely Alzheimer's type, stable. 3. Chronic atrial fibrillation, rate controlled. No anticoagulation due to falls. 4. Acute kidney injury, resolved. 5. Hypothyroidism, chronic, stable. 6. Physical deconditioning. CONSULTATIONS: None. PERTINENT LABORATORY AND X-RAY FINDINGS: Creatinine 1.22. Troponin I is negative x3. TSH 10.84. Free T4 of 0.81. CBC within normal limits. Portable chest x-ray dated 10/18/2019, showed chronic changes without acute infiltrate. Carotid Doppler study dated 10/19/2019, showed moderate stenosis 50% to 69% of the right internal carotid artery. 2D transthoracic echocardiogram dated 10/19/2019 showed ejection fraction 50% to 55%. Mild mitral and tricuspid regurgitation. HOSPITAL COURSE: The patient was initially admitted after presenting status post mechanical falls, memory disturbance and altered mental status. The patient underwent general evaluation, ruling out for cardiac etiology with serial cardiac biomarkers, which were negative x3. 2D transthoracic echocardiogram was performed showing overall preserved ejection fraction of 50% to 55%. The patient underwent general metabolic evaluation showing mild acute kidney injury, receiving IV fluids with complete resolution. The patient also continued on her chronic medication regimen to include Coreg 25 mg b.i.d. and aspirin. The patient with a known history of chronic atrial fibrillation with overall rate control, however, not a candidate for anticoagulation due to recurrent falls. The patient was evaluated by Physical and Occupational Therapy, ambulating with a rolling walker with standby assistance. The patient was initially evaluated for potential residential placement. However, due to functional status and insurance issues, the patient was not approved for residential care. The family has decided to pursue care at home with potential assisted living or [place] [facility] care at a later date. I have examined the patient at the time of discharge and discussed followup instructions. Overall, the patient clinically stable and ready for discharge on 10/28/2019. DISCHARGE MEDICATIONS: 1. Coreg 25 mg p.o. b.i.d. 2. Vitamin B12 of 1000 mcg IM monthly. 3. Aricept 5 mg p.o. daily. 4. Gabapentin 400 mg p.o. t.i.d. 5. Levothyroxine 25 mcg p.o. daily. 6. Enteric-coated aspirin 81 mg p.o. daily. 7. Haldol 0.5 mg p.o. q.6 hours p.r.n. agitation and delirium. 8. Detrol 1 mg p.o. b.i.d. FOLLOWUP: The patient to establish with primary care provider in the [facility] area with family assistance. CONDITION ON DISCHARGE: Stable. ACTIVITY: Ad simin, rolling walker with standby assistance and fall risk precautions. DIET: Regular. CODE STATUS: Do not attempt resuscitation. DISPOSITION: Home on 10/28/2019. TIME SPENT: Total time preparing and coordinating discharge is 36 minutes. Job ID: [id number]
[2019-10-28] MEDS: Lidocaine 5% Patch TD SCH (14:38)
--- NOTE | 2019-10-31 02:54 | PQF ---
JENNIFER GARRIDO CHARLES [id number] ONC-[id number] CLINICAL DOCUMENTATION CLARIFICATION FORM: POST DISCHARGE Addendum to original discharge summary date: ____ Late entry note date: __ DATE: 10/31/2019 ATTN: Ralph Marcial Please exercise your independent, professional judgment in responding to the clarification form. Clinical indicators are provided on the bottom of this form for your review In your clinical opinion based on clinical findingd below, can you please identify the etiolgy of Altered mental status if due to: Please check appropriate box(s): [ ] Acute kidney injury [ x ] Alzheimer's dementia [ ] Other diagnosis [ ] Unable to determine In addition, please specify: Present on Admission (POA): [ x ] Yes [ ] No [ ] Unable to determine For continuity of documentation, please document condition throughout progress notes and discharge summary. Thank You. CLINICAL INDICATORS - SIGNS / SYMPTOMS / LABS Laboratory Chemistry 10/18 BUN 24, Creatinine 1.22 H&P p1 10/19 Dr Quiñonez the daughter reports progressive memory loss, functional decline, noncompliance with chronic medication regimen and inability to care for herself H&P p1 10/19 Dr Quiñonez the pr was released from the hospital 10/10/19, following up with neurologist due to concern for memory disturbance and Alzheimer's dementia H&P p1 10/19 Dr Quiñonez Screening metabolic survey was essentially unremarkable without infectious process identified Hospitalist PN p1 10/20 Dr Quiñonez f/u for AMS, delirium, dehydration and falls. Nursing reports pt agitated and attempting to get out of bed Hospitalist PN p5 10/20 Dr Quiñonez delirium likely sundowning Discharge summary p1 10/28 Dr Quiñonez underwent general metabolic evaluation showing mild Acute kidney injury Discharge summary 10/28 Dr Quiñonez delirium multifactorial RISK FACTORS: ED Notes p1 10/18 - HTN H&P p1 10/19 83 year-old Female H&P p1 10/19 - Alzheimer's dementia H&P p1 10/19 - history of multiple falls H&P p1 10/19 - Hypothyroidism H&P p4 10/19 - Acute kidney injury TREATMENTS: NOV 19 Neurontin 40mg PO NOV 19 Lactated Ringers 1L NOV 19 1L normal saline NOV 19 IV Ativan 1mg NOV 20 Haldol 0.5 po HP p4 10/19 Avoid nephrotoxic medications Hospitalist PN p5 10/20 PT/OT assessment (This form is maintained as a part of the permanent medical record) 2014 [employer]. All Rights Reserved [email or web address]
--- NOTE | 2019-10-31 02:58 | PQF ---
JENNIFER GARRIDO RICHARD MD [id number] ONC-132 [id number] CLINICAL DOCUMENTATION CLARIFICATION FORM: POST DISCHARGE Addendum to original discharge summary date: ____ Late entry note date: __ DATE:10/31/2019 ATTN: Ralph Marcial Please exercise your independent, professional judgment in responding to the clarification form. Clinical indicators are provided on the bottom of this form for your review Please check appropriate box(s): [ ] Encephalopathy: Etiology: [ ] Hypertensive [ ] Metabolic [ ] Toxic [ ] Drug induced: [ ] Unspecified [ x ] in the setting of underlying dementia [ ] Other (please specify) [ ] Transient Alteration of Awareness [ ] Other diagnosis [ ] Unable to determine In addition, please specify: Present on Admission (POA): [ x ] Yes [ ] No [ ] Unable to determine For continuity of documentation, please document condition throughout progress notes and discharge summary. Thank You. CLINICAL INDICATORS - SIGNS / SYMPTOMS / LABS Laboratory Chemistry 10/18 BUN 24, Creatinine 1.22 H&P p1 10/19 Dr Quiñonez the daughter reports progressive memory loss, functional decline, noncompliance with chronic medication regimen and inability to care for herself H&P p1 10/19 Dr Quiñonez the pt was released from the hospital 10/10/19, following up with neurologist due to concern for memory disturbance and Alzheimer's dementia H&P p1 10/19 Dr Quiñonez Screening metabolic surgery was essentially unremarkable without infectious process identified Hospitalist PN p1 10/20 Dr Quiñonez f/u for AMS, delirium, dehydration and falls. Nursing reports pt agitated and attempting to get out of bed Hospitalist PN p5 10/20 Dr Quiñonez delirium likely sundowning Discharge summary p1 10/28 Dr Quiñonez underwent general metabolic evaluation showing mild Acute kidney injury RISK FACTORS: ED Notes p1 10/18 - HTN H&P 10/19 83 year-old Female H&P p1 10/19 - Alzheimer's dementia H&P p1 10/19 - history of multiple falls H&P p1 10/19 - Hypothyroidism H&P p4 10/19 - Acute kidney injury TREATMENTS: NOV 19 Neurontin 40mg PO NOV 19 Lactated Ringers 1L NOV 19 1L normal saline NOV 19 IV Ativan 1mg NOV 20 Haldol 0.5 po HP p4 10/19 Avoid nephrotoxic medications Hospitalist PN p5 10/20 PT/OT assessment (This form is maintained as a part of the permanent medical record) 2014 [employer]. All Rights Reserved [email or web address]
== END 2019-10-28 17:30 | disposition home or self-care (01) | DRG 57 ==
LOC: ERS 22:13 → OBSVTOIN 10-19 04:23 → ONC 10-19 04:23
PROVIDERS: ADMIT Internal Medicine; ATTEND Family Medicine
DX: G30.9 Alzheimer's disease, unspecified (principal); N17.9 Acute kidney failure, unspecified; I48.20 Chronic atrial fibrillation, unspecified; F05 Delirium due to known physiological condition; F02.81 Dementia in other diseases classified elsewhere, unspecified severity, with behavioral disturbance; Z66 Do not resuscitate; E03.9 Hypothyroidism, unspecified; I10 Essential (primary) hypertension; E86.0 Dehydration; R29.6 Repeated falls; Z79.899 Other long term (current) drug therapy; Z79.890 Hormone replacement therapy; Z88.8 Allergy status to other drugs, medicaments and biological substances; Z91.14 Patient's other noncompliance with medication regimen
CPT/HCPCS: 36415; 36416; 51701; 71045; 80053; 81003; 84439; 84443; 84484; 85025; 93005; 93306; 93880; 96360; A4353; J2060

== ENCOUNTER 2020-01-13 17:28 | Inpatient (IN) | payer MEDICARE, OTHER ==
[2020-01-13 18:15] LABS: #Eosinphils 0.1 thou/uL (0.0-0.7); #Lymphocytes 1.5 thou/uL (1.20-3.40); #Neutrophils 10.8 thou/uL (1.40-6.50); %Basophils 0.1 % (0.0-1.0); %Eosinophils 0.8 % (0.0-10.0); %Lymphocytes 11.2 % (21.0-51.0); %Monocytes 7.4 % (0.0-10.0); %Neutrophils 80.5 % (42.0-75.0); Hemoglobin 13.9 g/dL (12.0-16.0); Mean Corpuscular HGB CONC 33.4 g/dL (32.0-36.0); Mean Corpuscular Hemoglobin 31.3 pg (27.0-31.0); Mean Corpuscular Volume 93.8 fL (78.0-98.0); Mean Platelet Volume 8.9 fL (7.4-10.4); Platelet Count 183 thou/uL (130-400); RBC Distribution Width 11.9 % (11.5-14.5); Red Blood Cell (RBC) Count 4.45 mill/uL (4.20-5.40); White Blood Cell (WBC) Count 13.4 thou/uL (4.8-10.8)
[2020-01-13 18:36] LABS: ALT (SGPT) 9 U/L (8-55); AST (SGOT) 16 U/L (5-34); Albumin 3.6 g/dL (3.4-4.8); Alkaline Phosphatase 96 U/L (40-110); Anion Gap 17 mmol/L (10-20); BUN (Urea Nitrogen) 49 mg/dL (9.8-20.1); Bilirubin, Total 0.6 mg/dL (0.2-1.2); Calc. Creatinine Clearance 0 mL/min (70-130); Calcium 9.3 mg/dL (7.8-10.44); Carbon Dioxide 21 mmol/L (23-31); Chloride 105 mmol/L (98-107); Estimated GFR-MDRD 30; Globulin 3.4 g/dL (2.4-3.5); Glucose 146 mg/dL (83-110); Potassium 3.8 mmol/L (3.5-5.1); Sodium 139 mmol/L (136-145)
--- NOTE | 2020-01-13 18:50 | ULT ---
Exam: Transabdominal pelvic ultrasound HISTORY:Multiple pelvic surgeries. Pelvic bleeding. Vaginal bleeding. COMPARISON: None TECHNIQUE: Transabdominal of the pelvis is performed. FINDINGS: Limited evaluation due to bowel gas Uterus: Not identified No free fluid No obvious solid masses . IMPRESSION: Limited evaluation the pelvis. No obvious masses or fluid.
[2020-01-13 18:55] LABS: Clarity Turbid (Clear); Glucose, Urine (Dipstick) Unable to Interpret mg/dL (Negative); Leukocyte Unable to Interpret Leu/uL (Negative); Nitrite Unable to Interpret (Negative); Protein, Urine (Dipstick) Unable to Interpret mg/dL (Neg-Trace)
[2020-01-13 18:56] LABS: Bacteria/HPF 2+ HPF (None Seen); Bilirubin Unable to Interpret (Negative); Blood, Urine Unable to Interpret (Negative); RBC/HPF Greater than 50 HPF (0-3); Squamous Epithelial 0-3 HPF (0-3); Urobilinogen UNABLE TO INTERPRET mg/dL (Less than 2)
[2020-01-13] MEDS ORDERED: cefTRIAXone\\ROCEPHIN 2 GM VIAL ONE (19:11)
[2020-01-13 19:40] LABS: PTT 25.1 SEC (22.9-36.1); Prothrombin Time 13.6 SEC (12.0-14.7)
[2020-01-13] MEDS ORDERED: Acetaminophen 650 MG Suppository PR PRN (20:59)
[2020-01-13] MEDS ORDERED: Acetaminophen 325 MG TAB PO PRN (20:59)
--- NOTE | 2020-01-13 21:24 | PDOC.HHP ---
Hospitalist HPI - History of Present Illness hematuria History of Present Illness: patient has advance dementia, no family members were present at the moment of my evaluation, most of the history was taken from emr Case of an 84y/o female with pmhx of dementia, alzheimers with dementia, hypertension and hypothyroidism who was brought to hospital due to an episode of hematuria. apparently patient was on her usual state of health until today while at the prison had an episode of gross hematuria for which they called the ems and patient was brought here for evaluation. patient was evaluated at the ed with a vaginal us and physical exam, u/s wnl there was blood coming out of the urethra as per senior process engineer. patient is only oriented to person and does not understand why she is in the hospital and does not remember the hematuria Hospitalist ROS - Review of Systems ROS unobtainable: due to mental status Hospitalist History - Past Medical History Source: RN notes reviewed, prison record Cardiac: reports: HTN Endocrine: reports: Hypothyroidism - Past Surgical History Other Surgical History: unable to asses due to dementia - Family History Other Family History: unable to asses due to dementia - Social History Living Situation: Longterm Other Social History: unable to asses properly due to dementia - Exam General Appearance: NAD, awake alert Eye: PERRL, anicteric sclera ENT: normocephalic atraumatic, no oropharyngeal lesions Neck: supple, symmetric, no JVD, no thyromegaly Heart: no murmur, no gallops, no rubs, irregular Respiratory: CTAB, no wheezes, no rales Gastrointestinal: soft, non-tender, non-distended, normal bowel sounds Extremities: no cyanosis, no clubbing Skin: normal turgor, no lesions Neurological: cranial nerve grossly intact, normal sensation to touch, no weakness Musculoskeletal: normal tone, normal strength Psychiatric: normal affect, normal behavior, oriented to person Hospitalist Results - Labs Result Diagrams: 01/13/20 18:02 01/13/20 18:02 Lab results: WBC 13.4 thou/uL (4.8-10.8) H 01/13/20 18:02 Hgb 13.9 g/dL (12.0-16.0) 01/13/20 18:02 Hct 41.7 % (36.0-47.0) 01/13/20 18:02 MCV 93.8 fL (78.0-98.0) 01/13/20 18:02 Plt Count 183 thou/uL (130-400) 01/13/20 18:02 Neutrophils % 80.5 % (42.0-75.0) H 01/13/20 18:02 Sodium 139 mmol/L (136-145) 01/13/20 18:02 Potassium 3.8 mmol/L (3.5-5.1) 01/13/20 18:02 Chloride 105 mmol/L (98-107) 01/13/20 18:02 Carbon Dioxide 21 mmol/L (23-31) L 01/13/20 18:02 BUN 49 mg/dL (9.8-20.1) H 01/13/20 18:02 Creatinine 1.63 mg/dL (0.6-1.1) H 01/13/20 18:02 Glucose 146 mg/dL (83-110) H 01/13/20 18:02 Lactic Acid 1.8 mmol/L (0.5-2.2) 01/13/20 19:24 Calcium 9.3 mg/dL (7.8-10.44) 01/13/20 18:02 Total Bilirubin 0.6 mg/dL (0.2-1.2) 01/13/20 18:02 AST 16 U/L (5-34) 01/13/20 18:02 ALT 9 U/L (8-55) 01/13/20 18:02 Alkaline Phosphatase 96 U/L (40-110) 01/13/20 18:02 Serum Total Protein 7.0 g/dL (6.0-8.3) 01/13/20 18:02 Albumin 3.6 g/dL (3.4-4.8) 01/13/20 18:02 Urine Ketones Unable to Interpret mg/dL (Negative) 01/13/20 18:26 Urine Blood Unable to Interpret (Negative) 01/13/20 18:26 Urine Nitrite Unable to Interpret (Negative) 01/13/20 18:26 Ur Leukocyte Esterase Unable to Interpret Anders/uL (Negative) 01/13/20 18:26 Urine RBC Greater than 50 HPF (0-3) A 01/13/20 18:26 Urine WBC 11-20 HPF (0-3) A 01/13/20 18:26 Ur Squamous Epith Cells 0-3 HPF (0-3) 01/13/20 18:26 Urine Bacteria 2+ HPF (None Seen) A 01/13/20 18:26 - Radiology Interpretation Other Status: image reviewed by me (vaginal u/s) Additional Comment: no masses or free fluid identified Hospitalist H&P A/P - Problem (1) Hemorrhagic cystitis Code(s): N30.91 - CYSTITIS, UNSPECIFIED WITH HEMATURIA Status: Acute (2) INGRIS (acute kidney injury) Code(s): N17.9 - ACUTE KIDNEY FAILURE, UNSPECIFIED Status: Acute (3) Delirium Code(s): R41.0 - DISORIENTATION, UNSPECIFIED Status: Acute (4) Chronic atrial fibrillation Code(s): I48.20 - CHRONIC ATRIAL FIBRILLATION, UNSPECIFIED Status: Chronic (5) Dementia Code(s): F03.90 - UNSPECIFIED DEMENTIA WITHOUT BEHAVIORAL DISTURBANCE Status: Chronic (6) Hypothyroid Code(s): E03.9 - HYPOTHYROIDISM, UNSPECIFIED Status: Chronic - Plan Plan: hemorragic cystitis - likely secondary to infection, started on rocephin iv. u/ a consistent with uti, cultures were taken. vaginal u/s was wnl did not showed any abnomalities masses or fluid. will get a renal u/s. depending on findings consider uro evaluation ingris - started on ivfs, f/u renal us. f/u u/o and creatinine values hypothyroidism - continue home meds htn - continue home meds adjust as necessary a fib - chronic, persistent on rate control with betabloacker, no anticoagulation due to hx of falls, holding asa due to bleeding alz dementia - chornic, continue home meds
--- NOTE | 2020-01-14 00:02 | ULT ---
Exam: Bilateral renal ultrasound HISTORY: Acute kidney insufficiency COMPARISON: None FINDINGS: Right kidney: Normal cortical echotexture. No hydronephrosis. Right renal cortical thinning. Right kidney measurements: 4.9 x 10.1 x 4.0 cm. Left kidney: Normal cortical echotexture. No hydronephrosis. Left renal cortical thinning. Anechoic f ocus in the upper pole of the left kidney compatible with a 3.4 x 3.0 x 3.2 cm cyst. Adjacent smaller anechoic focus measures 1.5 x 1.0 x 1.3 cm and is felt to represent a cyst. 0.6 cm anechoic f ocus in the midpole the left kidney is also felt to represent a cyst. Left kidney measurements 5.2 x 4.6 x 9.2 cm. Urinary bladder: Bladder mucosal prominence measuring 1.0 cm. Bladder prominence may in part be due t o inadequate distention. Bilateral ureteral jets are identified. IMPRESSION: 1. No hydronephrosis 2. Bilateral renal cortical thinning 3. Urinary bladder mucosal prominence, nonspecific. Prominence may in part be due to inadequate bladd er distention. Bilateral ureteral jets are identified. 4. Multiple left renal cortical cysts.
[2020-01-14] MEDS: Sodium Chloride 0.9% 1,000 ML IV SCH ×3 (00:41→20:29)
[2020-01-14 04:39] LABS: ALT (SGPT) 7 U/L (8-55); AST (SGOT) 14 U/L (5-34); Albumin 3.1 g/dL (3.4-4.8); Alkaline Phosphatase 77 U/L (40-110); Anion Gap 10 mmol/L (10-20); BUN (Urea Nitrogen) 40 mg/dL (9.8-20.1); Bilirubin, Total 0.4 mg/dL (0.2-1.2); Calc. Creatinine Clearance 35 mL/min (70-130); Calcium 8.5 mg/dL (7.8-10.44); Carbon Dioxide 26 mmol/L (23-31); Chloride 108 mmol/L (98-107); Estimated GFR-MDRD 38; Globulin 2.7 g/dL (2.4-3.5); Glucose 103 mg/dL (83-110); Potassium 3.3 mmol/L (3.5-5.1); Protein, Total 5.8 g/dL (6.0-8.3); Sodium 141 mmol/L (136-145)
[2020-01-14 05:12] LABS: Band 6 % (5-11); Eosinophils 4 % (0-10); Hemoglobin 11.9 g/dL (12.0-16.0); Lymphocytes 32 % (21-51); MDiff Complete? YES; Mean Corpuscular HGB CONC 33.6 g/dL (32.0-36.0); Mean Corpuscular Hemoglobin 31.1 pg (27.0-31.0); Mean Corpuscular Volume 92.5 fL (78.0-98.0); Mean Platelet Volume 8.7 fL (7.4-10.4); Monocytes 2 % (0-10); Neutrophil 56 % (42-75); Platelet Count 163 thou/uL (130-400); RBC Distribution Width 11.6 % (11.5-14.5); Red Blood Cell (RBC) Count 3.84 mill/uL (4.20-5.40); White Blood Cell (WBC) Count 9.7 thou/uL (4.8-10.8)
[2020-01-14] MEDS: Levothyroxine Sodium 25 MCG TAB PO SCH (07:48)
[2020-01-14] MEDS: Donepezil HCl 5 MG TAB PO SCH (08:59)
[2020-01-14] MEDS ORDERED: Prevnar 13-Val Conj/PF 0.5 ML SYRINGE IM ONE (09:00)
[2020-01-14] MEDS: Carvedilol 25 MG TAB PO SCH ×2 (09:01→20:23)
--- NOTE | 2020-01-14 12:36 | PDOC.HOSPP ---
- Subjective Encounter Date: 01/14/20 Encounter Time: 09:45 Subjective: awake and calm, not oriented feels weak has not had her breakfast yet NO complaints - Objective Vital Signs & Weight: Vital Signs (12 hours) Temp Pulse Resp BP BP Pulse Ox 01/14/20 08:00 97.4 F L 90 16 120/68 120/68 98 01/14/20 04:00 98.5 F 83 18 112/68 97 Weight Weight 159 lb 6.4 oz I&O: 01/13/20 01/14/20 01/15/20 06:59 06:59 06:59 Intake Total 250 Balance 250 Result Diagrams: 01/14/20 04:09 01/14/20 04:09 Hospitalist ROS - Medication Medications: Active Medications Generic Name Dose Route Start Last Admin Trade Name Freq PRN Reason Stop Dose Admin Carvedilol 25 mg 01/14/20 09:00 01/14/20 09:01 Coreg PO 25 mg BID AYANNA Administration Donepezil HCl 5 mg 01/14/20 09:00 01/14/20 08:59 Aricept PO 5 mg DAILY AYANNA Administration Sodium Chloride 1,000 mls @ 40 mls/hr 01/13/20 21:00 01/14/20 00:41 Normal Saline 0.9% IV 1,000 mls .Q24H AYANNA Administration Levothyroxine Sodium 25 mcg 01/14/20 06:00 01/14/20 07:48 Synthroid PO Not Given 0600 AYANNA - Exam General Appearance: ill appearing Eye: PERRL, anicteric sclera ENT: no oropharyngeal lesions, dry oral mucosa Neck: supple, no JVD Heart: RRR, no murmur Respiratory: no wheezes, no rales Gastrointestinal: soft, non-tender, non-distended, normal bowel sounds Extremities: no cyanosis, no edema Neurological: cranial nerve grossly intact, no focal deficits Hosp A/P (1) Hemorrhagic cystitis Code(s): N30.91 - CYSTITIS, UNSPECIFIED WITH HEMATURIA Status: Acute (2) INGRIS (acute kidney injury) Code(s): N17.9 - ACUTE KIDNEY FAILURE, UNSPECIFIED Status: Acute (3) Delirium Code(s): R41.0 - DISORIENTATION, UNSPECIFIED Status: Acute (4) Chronic atrial fibrillation Code(s): I48.20 - CHRONIC ATRIAL FIBRILLATION, UNSPECIFIED Status: Chronic (5) Dementia Code(s): F03.90 - UNSPECIFIED DEMENTIA WITHOUT BEHAVIORAL DISTURBANCE Status: Chronic Qualifiers: Dementia type: Alzheimer's disease (6) Hypothyroid Code(s): E03.9 - HYPOTHYROIDISM, UNSPECIFIED Status: Chronic Qualifiers: Hypothyroidism type: unspecified Qualified Code(s): E03.9 - Hypothyroidism , unspecified (7) Physical deconditioning Code(s): R53.81 - OTHER MALAISE Status: Chronic - Plan is on ceftriaxone, coreg, donepezil, synthroid and home dose of haldol afib is rate controlled may tx to med floor hemostable encourage po intake, gentle iv hydration until then oob to chair as tolerated, PT/OT eval no gross hematuria now
[2020-01-14] MEDS: cefTRIAXone\\ROCEPHIN 2 GM in Sodium Chloride 0.9% 100 ML IVPB SCH (20:23)
[2020-01-14] MEDS: Oxybutynin 5 MG TAB PO SCH (20:23)
[2020-01-14] MEDS: Haloperidol 1 MG TAB PO SCH (20:23)
[2020-01-15] MEDS: Levothyroxine Sodium 25 MCG TAB PO SCH (05:24)
[2020-01-15] MEDS: Donepezil HCl 5 MG TAB PO SCH (09:08)
[2020-01-15] MEDS: Oxybutynin 5 MG TAB PO SCH ×2 (09:08→20:32)
[2020-01-15] MEDS: Carvedilol 25 MG TAB PO SCH ×2 (09:14→20:32)
--- NOTE | 2020-01-15 10:40 | PDOC.HOSPP ---
- Subjective Encounter Date: 01/15/20 Encounter Time: 08:15 Subjective: awake, no sob or abd pain feels better - Objective Vital Signs & Weight: Vital Signs (12 hours) Temp Pulse Resp BP Pulse Ox 01/15/20 06:59 97.6 F 80 17 118/78 97 Weight Admit Weight 159 lb 6.4 oz Weight 158 lb 4.67 oz I&O: 01/14/20 01/15/20 01/16/20 06:59 06:59 06:59 Intake Total 250 840 Output Total 200 Balance 250 640 Result Diagrams: 01/14/20 04:09 01/14/20 04:09 Hospitalist ROS - Medication Medications: Active Medications Generic Name Dose Route Start Last Admin Trade Name Freq PRN Reason Stop Dose Admin Carvedilol 25 mg 01/14/20 09:00 01/15/20 09:14 Coreg PO Not Given BID AYANNA Donepezil HCl 5 mg 01/14/20 09:00 01/15/20 09:08 Aricept PO 5 mg DAILY AYANNA Administration Haloperidol 1 mg 01/14/20 21:00 01/14/20 20:23 Haldol PO 1 mg BID AYANNA Administration Sodium Chloride 1,000 mls @ 40 mls/hr 01/13/20 21:00 01/14/20 20:29 Normal Saline 0.9% IV Not Given .Q24H AYANNA Ceftriaxone Sodium 2 gm/ 100 mls @ 200 mls/hr 01/14/20 20:00 01/14/20 20:23 Sodium Chloride IVPB 100 mls 2000 AYANNA Administration Levothyroxine Sodium 25 mcg 01/14/20 06:00 01/15/20 05:24 Synthroid PO 25 mcg 0600 AYANNA Administration Oxybutynin Chloride 5 mg 01/14/20 21:00 01/15/20 09:08 Ditropan PO 5 mg BID AYANNA Administration Pantoprazole Sodium 40 mg 01/14/20 21:00 01/15/20 09:15 Protonix PO Not Given BID AYANNA - Exam General Appearance: awake alert Eye: PERRL, anicteric sclera ENT: no oropharyngeal lesions, dry oral mucosa Neck: supple, no JVD Heart: RRR, no gallops, murmur present Respiratory: no wheezes, no rales, rhonchi Gastrointestinal: soft, non-tender, non-distended, normal bowel sounds Extremities: no cyanosis, no edema Neurological: cranial nerve grossly intact, no focal deficits Hosp A/P (1) Hemorrhagic cystitis Code(s): N30.91 - CYSTITIS, UNSPECIFIED WITH HEMATURIA Status: Acute (2) INGRIS (acute kidney injury) Code(s): N17.9 - ACUTE KIDNEY FAILURE, UNSPECIFIED Status: Acute (3) Delirium Code(s): R41.0 - DISORIENTATION, UNSPECIFIED Status: Acute (4) Chronic atrial fibrillation Code(s): I48.20 - CHRONIC ATRIAL FIBRILLATION, UNSPECIFIED Status: Chronic (5) Dementia Code(s): F03.90 - UNSPECIFIED DEMENTIA WITHOUT BEHAVIORAL DISTURBANCE Status: Chronic Qualifiers: Dementia type: Alzheimer's disease (6) Hypothyroid Code(s): E03.9 - HYPOTHYROIDISM, UNSPECIFIED Status: Chronic Qualifiers: Hypothyroidism type: unspecified Qualified Code(s): E03.9 - Hypothyroidism , unspecified (7) Physical deconditioning Code(s): R53.81 - OTHER MALAISE Status: Chronic - Plan is on ceftriaxone, coreg, donepezil, synthroid and home dose of haldol afib is rate controlled urine culture is growing mixed precious, will switch her to cipro in am hemostable encourage po intake, gentle iv hydration until then oob to chair as tolerated, PT/OT eval no gross hematuria now
[2020-01-15] MEDS: Haloperidol 1 MG TAB PO SCH ×2 (12:07→20:32)
[2020-01-15] MEDS ORDERED: Labetalol HCl 100 MG/20 ML VIAL ONE (12:45)
[2020-01-15] MEDS: Sodium Chloride 0.9% 1,000 ML IV SCH ×2 (14:07→20:43)
[2020-01-15] MEDS: cefTRIAXone\\ROCEPHIN 2 GM in Sodium Chloride 0.9% 100 ML IVPB SCH (20:34)
[2020-01-16] MEDS: Levothyroxine Sodium 25 MCG TAB PO SCH (05:29)
[2020-01-16 05:46] LABS: #Eosinphils 0.2 thou/uL (0.0-0.7); #Lymphocytes 1.9 thou/uL (1.20-3.40); #Monocytes 0.6 thou/uL (0.11-0.59); #Neutrophils 5.2 thou/uL (1.40-6.50); %Basophils 0.4 % (0.0-1.0); %Eosinophils 2.1 % (0.0-10.0); %Lymphocytes 24.3 % (21.0-51.0); %Monocytes 7.8 % (0.0-10.0); %Neutrophils 65.3 % (42.0-75.0); Hemoglobin 11.9 g/dL (12.0-16.0); Mean Corpuscular HGB CONC 33.1 g/dL (32.0-36.0); Mean Corpuscular Hemoglobin 30.9 pg (27.0-31.0); Mean Corpuscular Volume 93.2 fL (78.0-98.0); Mean Platelet Volume 8.9 fL (7.4-10.4); Platelet Count 157 thou/uL (130-400); RBC Distribution Width 11.8 % (11.5-14.5); Red Blood Cell (RBC) Count 3.85 mill/uL (4.20-5.40); White Blood Cell (WBC) Count 7.9 thou/uL (4.8-10.8)
[2020-01-16 05:58] LABS: Anion Gap 12 mmol/L (10-20); BUN (Urea Nitrogen) 22 mg/dL (9.8-20.1); Calc. Creatinine Clearance 54 mL/min (70-130); Carbon Dioxide 22 mmol/L (23-31); Chloride 111 mmol/L (98-107); Estimated GFR-MDRD 63; Glucose 107 mg/dL (83-110); Potassium 3.6 mmol/L (3.5-5.1); Sodium 141 mmol/L (136-145)
[2020-01-16] MEDS: Donepezil HCl 5 MG TAB PO SCH (09:49)
[2020-01-16] MEDS: Haloperidol 1 MG TAB PO SCH ×2 (09:49→20:25)
[2020-01-16] MEDS: Carvedilol 25 MG TAB PO SCH ×2 (09:49→20:25)
[2020-01-16] MEDS: Oxybutynin 5 MG TAB PO SCH ×2 (09:50→20:25)
--- NOTE | 2020-01-16 10:21 | PDOC.HOSPP ---
- Subjective Encounter Date: 01/16/20 Encounter Time: 08:45 Subjective: is more awake and interacting today no sob - Objective Vital Signs & Weight: Vital Signs (12 hours) Temp Pulse Resp BP Pulse Ox 01/16/20 07:44 97.5 F L 95 20 137/94 H 94 L Weight Admit Weight 159 lb 6.4 oz Weight 158 lb 4.67 oz I&O: 01/15/20 01/16/20 01/17/20 06:59 06:59 06:59 Intake Total 840 1817 Output Total 200 950 Balance 640 867 Result Diagrams: 01/16/20 05:17 01/16/20 05:17 Hospitalist ROS - Medication Medications: Active Medications Generic Name Dose Route Start Last Admin Trade Name Freq PRN Reason Stop Dose Admin Carvedilol 25 mg 01/14/20 09:00 01/16/20 09:49 Coreg PO 25 mg BID AYANNA Administration Donepezil HCl 5 mg 01/14/20 09:00 01/16/20 09:49 Aricept PO 5 mg DAILY AYANNA Administration Haloperidol 1 mg 01/14/20 21:00 01/16/20 09:49 Haldol PO 1 mg BID AYANNA Administration Sodium Chloride 1,000 mls @ 40 mls/hr 01/13/20 21:00 01/15/20 20:43 Normal Saline 0.9% IV Not Given .Q24H AYANNA Levothyroxine Sodium 25 mcg 01/14/20 06:00 01/16/20 05:29 Synthroid PO Not Given 0600 AYANNA Oxybutynin Chloride 5 mg 01/14/20 21:00 01/16/20 09:50 Ditropan PO 5 mg BID AYANNA Administration Pantoprazole Sodium 40 mg 01/14/20 21:00 01/16/20 09:50 Protonix PO 40 mg BID AYANNA Administration Sodium Chloride 10 ml 01/16/20 09:00 01/16/20 09:51 Flush - Normal Saline IVF Not Given Q12HR AYANNA - Exam General Appearance: awake alert Eye: PERRL, anicteric sclera ENT: no oropharyngeal lesions, moist mucosa Neck: supple, no JVD Heart: RRR, no murmur Respiratory: no wheezes, no rales Gastrointestinal: soft, non-tender, non-distended, normal bowel sounds Extremities: no cyanosis, no edema Neurological: cranial nerve grossly intact, no focal deficits Hosp A/P (1) Hemorrhagic cystitis Code(s): N30.91 - CYSTITIS, UNSPECIFIED WITH HEMATURIA Status: Acute (2) INGRIS (acute kidney injury) Code(s): N17.9 - ACUTE KIDNEY FAILURE, UNSPECIFIED Status: Acute (3) Delirium Code(s): R41.0 - DISORIENTATION, UNSPECIFIED Status: Acute (4) Chronic atrial fibrillation Code(s): I48.20 - CHRONIC ATRIAL FIBRILLATION, UNSPECIFIED Status: Chronic (5) Dementia Code(s): F03.90 - UNSPECIFIED DEMENTIA WITHOUT BEHAVIORAL DISTURBANCE Status: Chronic Qualifiers: Dementia type: Alzheimer's disease (6) Hypothyroid Code(s): E03.9 - HYPOTHYROIDISM, UNSPECIFIED Status: Chronic Qualifiers: Hypothyroidism type: unspecified Qualified Code(s): E03.9 - Hypothyroidism , unspecified (7) Physical deconditioning Code(s): R53.81 - OTHER MALAISE Status: Chronic - Plan is on cipro, coreg, donepezil, synthroid and home dose of haldol afib is rate controlled urine culture grew p.mirabilis hemostable encourage po intake, gentle iv hydration until then oob to chair as tolerated, PT/OT eval no gross hematuria now dc plan when she is ambulating and eating well
[2020-01-16] MEDS: Sodium Chloride 0.9% 1,000 ML IV SCH (17:40)
[2020-01-16] MEDS: Ciprofloxacin 500 MG TAB PO SCH (20:25)
[2020-01-17] MEDS: Ciprofloxacin 500 MG TAB PO SCH (06:22)
[2020-01-17] MEDS: Levothyroxine Sodium 25 MCG TAB PO SCH (06:22)
[2020-01-17] MEDS: Donepezil HCl 5 MG TAB PO SCH (08:19)
[2020-01-17] MEDS: Haloperidol 1 MG TAB PO SCH (08:19)
[2020-01-17] MEDS: Carvedilol 25 MG TAB PO SCH (08:19)
[2020-01-17] MEDS: Oxybutynin 5 MG TAB PO SCH (08:19)
[2020-01-17 12:43] VITALS: BMI 28.0
[2020-01-17 17:08] VITALS: BP 121/85; TEMP 98.3
--- NOTE | 2020-01-18 05:36 | DIS ---
DATE OF ADMISSION: 01/13/2020 DATE OF DISCHARGE: 01/17/2020 DISCHARGE DISPOSITION: Home with home health. PRIMARY DISCHARGE DIAGNOSES: Hematuria with cystitis, likely hemorrhagic cystitis, acute kidney injury stable, acute metabolic encephalopathy due to urinary tract infection resolving, baseline dementia, atrial fibrillation, which is rate controlled, hypothyroidism. PROCEDURES DONE DURING HOSPITALIZATION: Pelvic ultrasound done on the day of admission showed no obvious mass or fluid. Urine culture grew Proteus mirabilis and alpha hemolytic strep, both sensitive to all antibiotics except Macrobid. Had a white count of 13 on admission, discharge number of 7.9, H and H 12 and 36, platelet count 157. Discharge BUN and creatinine were 22 and 0.8. Admitting BUN and creatinine were 49 and 1.6. DISCHARGE MEDICATIONS: The patient is to continue: 1. Ciprofloxacin 500 mg p.o. twice daily for another 6 days. 2. Protonix 40 mg twice daily. 3. Oxybutynin 5 mg p.o. twice daily. 4. Synthroid 25 mcg p.o. daily. 5. Hydrochlorothiazide 12.5 mg p.o. daily. 6. Haldol 1 mg p.o. twice daily. 7. Aricept 5 mg p.o. daily. 8. Coreg 25 mg twice daily. ALLERGIES: TO CODEINE AND LORAZEPAM. DISCHARGE PLAN: The patient to follow up with primary care physician in 1 week. BRIEF COURSE DURING HOSPITALIZATION: The patient initially got admitted on the due to zoë hematuria. The patient was also confused. She had atrial fibrillation with RVR and was on Cardizem drip and admitted to [facility] initially. The patient has had pancultures drawn and was placed on broad-spectrum IV antibiotics. The pelvic ultrasound done did not reveal any obvious source of mass or swelling. The patient's acute metabolic encephalopathy is slowly resolving. In addition to the above, the patient has underlying dementia and is 84 years old. She has been able to stand with minimal assist. Placement was suggested including either inpatient rehab or swing bed, but the patient's daughter, Ms. Schrader does not want her going any place. She and her are well prepared to take care of her at home. She has had a renal ultrasound done as well during her stay, which showed no hydronephrosis. There was bilateral renal cortical thinning and bladder mucosal prominence was seen. There are multiple left renal cortical cysts were noted as well. Prior to discharge, she is eating and likely is at her baseline cognitive status. Please note, I have seen and examined the patient on the day of discharge. Prior to discharge, I have given complete updates to her daughter, Ms. Schrader. Job ID: [id number]
--- NOTE | 2020-01-18 09:00 | PQF ---
JENNIFER GARRIDO VINAYA KUMAR MD [id number] CLINICAL DOCUMENTATION CLARIFICATION FORM: POST DISCHARGE Addendum to original discharge summary date: ____ Late entry note date: __ DATE: 01/18/2020 ATTN: Ousmane Hunter Please exercise your independent, professional judgment in responding to the clarification form. Clinical indicators are provided on the bottom of this form for your review Please check appropriate box(es): [ x ] Sepsis due to UTI [ ] Severe sepsis with acute organ dysfunction of: (Examples: respiratory failure, encephalopathy, acute kidney failure, other) [ ] Septic Shock [ ] Localized infection without sepsis [ ] Other diagnosis [ ] Unable to determine In addition, please specify: Present on Admission (POA): [ x ] Yes [ ] No [ ] Unable to determine For continuity of documentation, please document condition throughout progress notes and discharge summary. Thank You. CLINICAL INDICATORS - SIGNS / SYMPTOMS / LABS Laboratory 01/12 WBC 13.4, Plt caound 183, Neutrophils 80.5, Lactic acid 1.8 Vital signs 01/12 BP139/93, Pulse 110, Resp 18, Temp 98.1 Urine Culture 01/12 Positive with Proteus Mirabilis, Aerococcus viridans H&P p1 01/12 Kings Pt is only oriented to person and does not understand why she is in the hospital and does not remember the hematuria H&P p1 01/12 Kings Unable to asses due to dementia H&P p3 01/12 Delirium H&P p3 01/12 INGRIS H&P p3 01/12 Hemorrhagic cystitis RISK FACTORS H&P p1 01/12 84 year-old Female H&P p1 01/12 Alzheimer with dementia H&P p1 01/12 HTN H&P p1 01/12 Afib H&P p1 01/12 hypothyroidism H&P p3 01/12 Hemorrhagic cystitis TREATMENTS: NOV 22 IVF NS 1L NOV 22 IV Ceftriaxone 2gm NOV 22 Cipro 500mg oral Urine culture 01/12 (This form is maintained as a part of the permanent medical record) 2014 [email or web address], [email or web address]. All Rights Reserved [email or web address]
== END 2020-01-17 17:09 | disposition home health service (06) | DRG 871 ==
LOC: ERS 17:28 → OBSVTOIN 20:44 → 2NO 20:44 → T4-A 01-14 14:05
PROVIDERS: ADMIT Internal Medicine; ATTEND Internal Medicine
DX: A41.9 Sepsis, unspecified organism (principal); G93.41 Metabolic encephalopathy; N30.01 Acute cystitis with hematuria; N17.9 Acute kidney failure, unspecified; I48.19 Other persistent atrial fibrillation; G30.9 Alzheimer's disease, unspecified; F02.80 Dementia in other diseases classified elsewhere, unspecified severity, without behavioral disturbance, psychotic disturbance, mood disturbance, and anxiety; I10 Essential (primary) hypertension; E03.9 Hypothyroidism, unspecified; R41.0 Disorientation, unspecified; Z79.899 Other long term (current) drug therapy; Z79.890 Hormone replacement therapy; Z28.21 Immunization not carried out because of patient refusal
CPT/HCPCS: 36415; 51701; 76770; 76856; 80048; 80053; 81003; 81015; 83605; 85007; 85025; 85027; 85610; 85730; 86850; 86900; 86901; 87077; 87086; 87186; 93005; 93976; 96361; 96365; A4353; J0696; J3490